=== PATIENT | male | born 1950 | race Caucasian/White ===

== ENCOUNTER 2018-01-01 13:02 | Emergency (ER) | payer MEDICARE, OTHER, SELFPAY ==
--- NOTE | 2018-01-01 13:06 | ED_ITS ---
HPI - General Adult General Chief complaint: Dizziness Stated complaint: LOW BLOOD PRESSURE,FEELS LIKE PASSING OUT Time Seen by Provider: 01/01/18 13:05 Source: patient Mode of arrival: ambulatory Limitations: no limitations History of Present Illness HPI narrative: Patient is a 67-year-old male who states he has been constipated for the past 4 days. States that he was going to his prosecuting attorney appointment this morning and when he got out of the car he had an episode of diarrhea. States that he became lightheaded afterwards. He is going to see his prosecuting attorney because he has a history of cardiomyopathy which he states is ? getting better ?no abdominal tenderness. Does have some nausea. No blood in his stool. Patient was sent here by his prosecuting attorney for concerns of dehydration. Related Data Home Medications Medication Instructions Recorded Confirmed Chantix Starting Month Box 1 tab PO BID 01/01/18 01/01/18 Tums E-X 2 tab PO BID 01/01/18 01/01/18 amlodipine 5 mg PO DAILY 01/01/18 01/01/18 aspirin 81 mg PO DAILY 01/01/18 01/01/18 carvedilol 25 mg PO BID 01/01/18 01/01/18 cholecalciferol (vitamin D3) 1 tab PO TID 01/01/18 01/01/18 [Vitamin D3] furosemide 40 mg PO DAILY 01/01/18 01/01/18 magnesium oxide 400 mg PO DAILY 01/01/18 01/01/18 multivitamin 1 tab PO DAILY 01/01/18 01/01/18 tacrolimus 1 cap PO BID 01/01/18 01/01/18 triamcinolone acetonide 1 applic TOPICAL BID PRN 01/01/18 01/01/18 Allergies Allergy/AdvReac Type Severity Reaction Status Date / Time RILEY Inhibitors Allergy Verified 01/01/18 13:29 Iodine and Iodide Containing Allergy Verified 01/01/18 13:29 Produc spironolactone Allergy Verified 01/01/18 13:29 Sulfa (Sulfonamide Allergy Verified 01/01/18 13:29 Antibiotics) Review of Systems Constitutional Denies fatigue, Denies fever(s) and Denies headache(s) ENT Ears, Nose, Mouth, and Throat: Denies vertigo, Reports dizziness and Denies headache(s) Cardiovascular Denies chest pain, Denies diaphoresis, Denies syncope, Denies edema, Reports lightheadedness, Denies palpitations and Denies dyspnea Respiratory Denies dyspnea and Denies wheezing Gastrointestinal Gastrointestinal: Denies abdominal pain, Denies melena, Reports constipation, Denies heartburn, Reports diarrhea, Reports nausea and Reports vomiting Musculoskeletal Denies myalgias and Denies arthralgias Integumentary/Breasts Denies new lesions, Denies rash and Denies sores Neurologic Denies confusion, Denies vertigo, Reports dizziness, Denies syncope and Denies headache(s) Psychiatric Denies confusion Endocrine Denies fatigue and Denies palpitations Hematologic/Lymphatic Denies easy bleeding and Denies easy bruising Allergic/Immunologic Denies wheezing PFSH Social History Smoking Status: Current every day smoker Exam Initial Vital Signs Initial Vital Signs: Vital Signs Temperature 97.9 F 01/01/18 13:29 Pulse Rate 90 01/01/18 13:29 Respiratory Rate 17 01/01/18 13:29 Blood Pressure 111/63 01/01/18 13:29 Pulse Oximetry 95 01/01/18 13:29 Const General: cooperative, comfortable and No acute distress Orientation: alert, awake and oriented x3 HENMT Head: normal to inspection, normocephalic and atraumatic Resp Effort & Inspection: normal respiratory effort Auscultation: clear to auscultation bilaterally Cardio Rate: regular rate Rhythm: regular rhythm Pulses: radial pulses present GI Palpation: soft, No firm and No guarding Skin Lesions: no lesions Rashes: no rashes Neuro General: alert, awake and oriented x3 Cognition: normal cognition Speech: speech normal Motor: muscle tone normal throughout Sensory Exam: no sensory deficits noted Extrem General: normal to inspection and capillary refill normal Psych Appearance: grossly normal and not disheveled Course Orders Ordered: ED Orders 01/01/18 13:05 EKG-12 Lead Stat 01/01/18 13:30 Complete Blood Count AUTO DIFF Stat Comprehensive Metabolic Panel Stat Lipase Stat Discontinued Medications Sodium Chloride (Normal Saline 0.9%) 1,000 mls @ 1,000 mls/hr IV BOLUS ONE Stop: 01/01/18 14:25 Last Infusion: 01/01/18 15:27 Dose: 0 mls/hr Admin: 01/01/18 13:49 Dose: 1,000 mls/hr Ondansetron HCl (Zofran) 4 mg IV NOW ONE Stop: 01/01/18 13:27 Last Admin: 01/01/18 13:49 Dose: 4 mg Vital Signs - 8 hr 01/01/18 13:29 01/01/18 14:08 01/01/18 15:17 Temperature 97.9 F Pulse Rate 90 89 109 H Respiratory Rate 17 20 20 Blood Pressure 111/63 Blood Pressure [Right Arm] 89/57 L 106/57 L Pulse Oximetry 95 98 Medical Decision Making MDM Narrative Medical decision making narrative: Patient received 1 L fluids here in the emergency department. Reported that he felt ?much better ?. Ambulated around the emergency department without assistance. Tolerated oral intake. I suspect his elevated creatinine low sodium were secondary to dehydration. Patient has elevated LFTs and elevated bilirubin. He is a liver transplant patient secondary to hepatocellular carcinoma. He states that his primary provider manages this. He also has a liver provider down in [place]. Patient was asking to go home. He states that he felt much better had no further episodes of diarrhea. Patient was given return precautions. He expressed understanding and agreement with plan. Lab Data Lab results reviewed: Yes I reviewed the patient's lab results. Result diagrams: 01/01/18 13:30 01/01/18 13:30 Lab Results 01/01/18 01/01/18 Range/Units 13:30 13:30 WBC 7.8 (4.5-11.0) X10^3/uL RBC 2.91 L (4.5-5.9) X10^6/uL Hgb 11.4 L (13.5-17.5) g/dL Hct 32.8 L (41-53) % MCV 112.8 H (80-100) fL MCH 39.1 H (26-34) PG MCHC 34.7 (30-36) % RDW 15.2 H (11.6-14.8) % Plt Count 125 L (150-400) X10^3/uL Neut % (Auto) 73.3 (50-75) % Lymph % (Auto) 13.1 L (25-40) % Braxton % (Auto) 13.0 (3-14) % Eos % (Auto) 0.2 L (2-4) % Baso % (Auto) 0.4 (0-2) % Neut # (Auto) 5700 (6814-3840) /uL RBC Morphology Not Reportable Polychromasia 1+ H Macrocytosis 1+ H Sodium 126 L (137-145) mmol/L Potassium 3.3 L (3.4-5.1) mmol/L Chloride 82 L (98-107) mmol/L Carbon Dioxide 32 (22-32) mmol/L BUN 27 H (9-20) mg/dL Creatinine 1.80 H (0.66-1.25) mg/dL Estimated GFR 37.8 L (>60) mL/min BUN/Creatinine Ratio 15.0 (6-22) Glucose 147 H (80-110) mg/dL Calcium 8.4 (8.4-10.2) mg/dL Total Bilirubin 2.5 H (0.2-1.3) mg/dL AST 117 H (17-59) IU/L ALT 73 H (21-72) IU/L Alkaline Phosphatase 219 H (38-126) U/L Troponin I Cancelled B-Natriuretic Peptide Cancelled Total Protein 6.1 L (6.3-8.2) g/dL Albumin 3.4 L (3.5-5.0) g/dL Globulin 2.7 (1.7-4.1) g/dL Albumin/Globulin Ratio 1.3 (1.0-2.8) Lipase 46 (23-300) U/L ECG Data Attestation: I personally reviewed and interpreted this ECG as follows: Prior ECG tracings: not available for review Interpretation: Sinus rhythm Ventricular rate in 93 Left bundle branch block PACs No ST T wave changes Discharge Plan Departure Patient Disposition: Home, Self-Care Clinical Impression: Dehydration, Hyponatremia, Diarrhea Instructions: DI for Dehydration -- Adult Activity Restrictions/Additional Instructions: Recommend that you continue all of your medications as directed. Recommend that you increase your fluid intake over the next couple days. Contact your primary care doctor to discuss your elevated liver enzymes on your labs today. Return to the emergency department for any new or worsening symptoms Prescriptions: No Action furosemide 40 mg tablet 40 mg PO DAILY RF: 0 carvedilol 25 mg tablet 25 mg PO BID RF: 0 amlodipine 5 mg tablet 5 mg PO DAILY RF: 0 tacrolimus 1 mg capsule 1 cap PO BID RF: 0 multivitamin Tablet 1 tab PO DAILY RF: 0 aspirin 81 mg Tablet,Delayed Release (Dr/Ec) 81 mg PO DAILY RF: 0 magnesium oxide 400 mg Tablet 400 mg PO DAILY RF: 0 cholecalciferol (vitamin D3) [Vitamin D3] 400 unit Tablet 1 tab PO TID RF: 0 Chantix Starting Month Box 1 tab PO BID RF: 0 Tums E-X 2 tab PO BID RF: 0 triamcinolone acetonide 0.1 % Ointment 1 applic TOPICAL BID PRN (Reason: itching/rash) RF: 0
[2018-01-01 13:29] VITALS: BP 111/63; PULSE 90; RESP 17; TEMP 36.6; O2SAT 95
[2018-01-01 13:42] LABS: Add Manual Diff / Slide Review NO; Basophils Percent Auto 0.4 % (0-2); Eosinophils Percent Auto 0.2 % (2-4); Hematocrit 32.8 % (41-53); Hemoglobin 11.4 g/dL (13.5-17.5); Lymphocytes Percent Auto 13.1 % (25-40); Mean Corpuscular HGB Conc 34.7 % (30-36); Mean Corpuscular Hemoglobin 39.1 PG (26-34); Mean Corpuscular Volume 112.8 fL (80-100); Neutrophils Absolute Auto 5700 /uL (3000-5900); Neutrophils Percent Auto 73.3 % (50-75); Platelet Count 125 X10^3/uL (150-400); Red Blood Cell Count 2.91 X10^6/uL (4.5-5.9); Red Cell Distribution Width 15.2 % (11.6-14.8); White Blood Cell Count 7.8 X10^3/uL (4.5-11.0)
[2018-01-01] MEDS: SODIUM CHLORIDE 0.9% 1,000 ML 1000 ML IV (13:49)
[2018-01-01] MEDS: ONDANSETRON 4 MG/2 ML INJ IV (13:49)
[2018-01-01 13:52] LABS: Alanine Aminotransferase 73 IU/L (21-72); Albumin 3.4 g/dL (3.5-5.0); Albumin Globulin Ratio 1.3 (1.0-2.8); Alkaline Phosphatase 219 U/L (38-126); Aspartate Aminotransferase 117 IU/L (17-59); Bilirubin Total 2.5 mg/dL (0.2-1.3); Blood Urea Nitrogen 27 mg/dL (9-20); Calcium 8.4 mg/dL (8.4-10.2); Carbon Dioxide 32 mmol/L (22-32); Chloride 82 mmol/L (98-107); Estimated Glomerular Filt Rate 37.8 mL/min (>60); Globulin 2.7 g/dL (1.7-4.1); Glucose 147 mg/dL (80-110); HEMOLYSIS < 15 (0-50); Lipase 46 U/L (23-300); Potassium 3.3 mmol/L (3.4-5.1); Sodium 126 mmol/L (137-145); Total Protein 6.1 g/dL (6.3-8.2)
[2018-01-01 14:08] VITALS: BP 89/57; PULSE 89; RESP 20; O2SAT 98
[2018-01-01 14:32] LABS: Macrocytosis 1+; Polychromasia 1+
[2018-01-01 15:17] VITALS: BP 106/57; PULSE 109; RESP 20
--- NOTE | 2018-01-01 16:17 | PC.NURSE ---
Patient was soiled from BM. I helped him with a bed bath, got him changed into clean clothes, and went for an ambulation trail
[2018-01-01 16:38] VITALS: BP 111/67; PULSE 90; RESP 20; O2SAT 96
== END 2018-01-01 16:40 | disposition home or self-care (01) ==
PROVIDERS: Emergency Provider Emergency Medicine; Family Provider Internal Medicine Advanced Heart Failure and Transplant Cardiology; PCP Student in an Organized Health Care Education/Training Program
DX: E86.0 Dehydration (principal); E87.1 Hypo-osmolality and hyponatremia; R19.7 Diarrhea, unspecified
CPT/HCPCS: 36591; 80053; 83690; 85025; 93005; 96361; 96374; 99283; 99284; J2405